=== PATIENT | female | born 1995 | race Caucasian/White ===

== ENCOUNTER 2017-12-01 11:48 | Emergency (ER) | payer BC, OTHER ==
[~2017-12-01] VITALS: Ht 167.6 cm; Wt 77.1 kg
[~2017-12-01 11:48] MED LIST: ABAT250V; IBUP800 PO; Percocet 5-3251 EACH PO; Verotin-Gr Cap1 EACH PO
[2017-12-01] MEDS ORDERED: SUDAFED 12-HOU120 M1 PO (13:14)
[2017-12-01] MEDS ORDERED: Augmentin 875-1 EACH PO (13:14)
== END 2017-12-01 13:26 | disposition home or self-care (01) ==
LOC: ER 11:48
DX: J32.9 Chronic sinusitis, unspecified (principal); F17.210 Nicotine dependence, cigarettes, uncomplicated
CPT/HCPCS: 99283

== ENCOUNTER → 2020-05-12 | Outpatient (CLI) | payer OTHER ==
[~2020-05-12] MED LIST changes: +Augmentin 875-1 EACH PO; +SUDAFED 12-HOU120 M1 PO
== END | disposition home or self-care (01) ==
LOC: LAB 16:30 → LAB SHORT 16:30
PROVIDERS: Obstetrics & Gynecology
DX: Z01.419 Encounter for gynecological examination (general) (routine) without abnormal findings (principal)
CPT/HCPCS: G0123

== ENCOUNTER 2020-10-24 05:01 | Emergency (ER) | payer OTHER ==
[~2020-10-24] VITALS: Ht 175.3 cm; Wt 74.8 kg
== END 2020-10-24 06:31 | disposition home or self-care (01) ==
LOC: ER 05:01
DX: K08.89 Other specified disorders of teeth and supporting structures (principal); F17.200 Nicotine dependence, unspecified, uncomplicated
CPT/HCPCS: 99282; A9270